=== PATIENT | female | born 2000 | race Two or more races ===

== ENCOUNTER 2021-10-30 19:43 | Emergency (ER) | payer MEDICAID, OTHER ==
[~2021-10-30] VITALS: Ht 165.1 cm; Wt 49.9 kg
[2021-10-30] MEDS ORDERED: ceFAZolin 1GM/50ML 100 ML IV ONE (21:00)
[2021-10-30] MEDS ORDERED: TETANUS-DIPTH-ACEL PERTUSSIS 0.5ML SYR Tdap IM ONE (21:00)
[2021-10-30] MEDS ORDERED: LIDOCAINE 1% HCL (LOCAL ANESTH.) INJ 20ML MDV IJ ONE (22:45)
[2021-10-30] MEDS ORDERED: CEPH-509 PO (23:53)
[2021-10-31] MEDS ORDERED: BACITRACIN TOP OINT 1 UD PKG TOP ONE
[2021-10-31 00:10] VITALS: BP 106/67
== END 2021-10-31 01:35 | disposition home or self-care (01) ==
LOC: ER 19:57
DX: S81.011A Laceration without foreign body, right knee, initial encounter (principal); S40.022A Contusion of left upper arm, initial encounter; S70.211A Abrasion, right hip, initial encounter; S60.416A Abrasion of right little finger, initial encounter; V89.2XXA Person injured in unspecified motor-vehicle accident, traffic, initial encounter; Y93.89 Activity, other specified; Y92.89 Other specified places as the place of occurrence of the external cause; Y99.8 Other external cause status
CPT/HCPCS: 12032; 73700; 90471; 90715; 96365; 99284; J0690; J2001; 13121